=== PATIENT | female | born 2005 | race Caucasian/White ===

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

== ENCOUNTER 2024-06-10 09:20 | Emergency (ER) | payer MEDICAID ==
--- NOTE | 2024-06-10 10:30 | XRAY Report ---
PROCEDURE: Wrist 3+V RT INDICATIONS: Trauma TECHNIQUE: 4 views of the wrist were acquired. COMPARISON: None. FINDINGS: Bones: No acute displaced fracture or dislocation. Soft tissues: No suspicious calcifications IMPRESSION: No acute radiographic abnormality. If there is high concern for occult injury, consider repeat radiog roger or cross-sectional imaging. Reviewed by: Leroy Morocho MD on 06/10/2024 10:29 AM PDT Approved by: Leroy Morocho MD on 06/10/2024 10:29 AM PDT Station ID: [id number]
--- NOTE | 2024-06-10 10:46 | ED Physician Documentation ---
PD HPI UPPER EXT INJURY - Stated complaint Stated Complaint: R WRIST PAIN - Chief complaint Chief Complaint: Ext Problem - History obtained from History obtained from: Patient - Additonal information Additional information: The patient comes to the emergency department for chief complaint of right wrist pain for about the last week after sports injury. She states that the swelling has gone down somewhat but that it still been hurting and she is wanted to get it checked out. She was playing volleyball and when she hit the ball, it pushed her wrist down into the ulnar aspect and she has been having pain over the dorsum ever since. No deformity. No other injuries or complaints. PD PAST MEDICAL HISTORY - Past Medical History Cardiovascular: None Respiratory: None Endocrine/Autoimmune: None GI: None : None HEENT: None Psych: None Musculoskeletal: None Derm: None - Past Surgical History Past Surgical History: No - Present Medications Home Medications: Ambulatory Orders Medication Instructions Recorded Confirmed Phenazopyridine HCl [Pyridium] 200 mg PO TID PRN #6 tablet 07/18/23 cephALEXin [Keflex] 500 mg PO TID #21 cap 07/18/23 Phenazopyridine HCl [Pyridium] 200 mg PO TID PRN #6 tablet 10/13/23 cephALEXin [Keflex] 500 mg PO Q6H #12 cap 10/13/23 - Allergies Allergies/Adverse Reactions: Allergies Allergy/AdvReac Type Severity Reaction Status Date / Time No Known Drug Allergies Allergy Verified 07/18/23 11:03 - Social History Does the pt smoke?: No Smoking Status: Never smoker Does the pt drink ETOH?: No Does the pt have substance abuse?: No - Immunizations Immunizations are current?: Yes - POLST Patient has POLST: No PD ED PE NORMAL - Vitals Vital signs reviewed: Yes - General General: Alert and oriented X 3, No acute distress, Well developed/nourished - HEENT HEENT: Atraumatic, EOMI, Moist mucous membranes - Neck Neck: Supple, no meningeal sign - Cardiac Cardiac: Strong equal pulses - Respiratory Respiratory: No respiratory distress - Derm Derm: Normal color, Warm and dry, No rash - Extremities Extremities: No deformity, Other (Minimal edema right wrist. Some tenderness to palpation of the dorsum. No deformity. Nearly full range of motion.) - Neuro Neuro: No motor deficit, No sensory deficit - Psych Psych: Normal mood, Normal affect Results - Vitals Vitals: Oxygen O2 Source Room air - Rads (name of study) Right wrist x-ray series Relevant Findings:: Final report received, See rad report (Negative) PD Medical Decision Making - ED course Complexity details: reviewed results, re-evaluated patient, considered differential, d/w patient ED course: Patient's x-ray series was negative. She declined a wrist brace. We have discussed symptomatic management at home. Departure - Departure Disposition: Home, Self Care Clinical Impression: Right wrist sprain Qualifiers: Encounter type: initial encounter Qualified Code(s): S63.501A - Unspecified sprain of right wrist, initial encounter Condition: Stable Instructions: ED Sprain Wrist Comments: Your x-ray looks goodno broken bones. You most likely sprained one of the ligaments of your wrist. You do not have to wear a brace if you do not want to, but you should go easy on your wrist until it is feeling better. You should avoid any movements that are painful, and may ease back into regular use of the wrist as your pain subsides. Forms: PCP List Discharge Date/Time: 06/10/24 10:54
[2024-06-10 11:07] VITALS: BP 108/56; O2SAT 99
== END 2024-06-10 10:54 | disposition home or self-care (01) ==
LOC: ED 09:20
DX: S63.501A Unspecified sprain of right wrist, initial encounter (principal); X50.1XXA Overexertion from prolonged static or awkward postures, initial encounter; Y93.68 Activity, volleyball (beach) (court)
CPT/HCPCS: 99283